=== PATIENT | male | born 1965 | race Caucasian/White ===

== ENCOUNTER → 2023-09-20 13:03 | Outpatient (REF) | payer OTHER, SELFPAY | LOC: HWRAD 13:03 | PROVIDERS: ATTENDING PHYSICIAN Family Medicine | DX: Z01.31 Encounter for examination of blood pressure with abnormal findings (principal); R07.81 Pleurodynia | CPT/HCPCS: 71101 ==

== ENCOUNTER → 2025-06-25 07:42 | Outpatient (REF) | payer OTHER, SELFPAY | LOC: EMG 07:42 | PROVIDERS: ATTENDING PHYSICIAN Student in an Organized Health Care Education/Training Program; FAMILY PHYSICIAN Family Medicine | DX: G56.03 Carpal tunnel syndrome, bilateral upper limbs (principal) | CPT/HCPCS: 95886; 95911 ==